=== PATIENT | male | born 1975 | race Caucasian/White ===

== ENCOUNTER 2024-06-27 15:40 | Outpatient (CLI) | payer OTHER, SELFPAY ==
--- NOTE | ~2024-06-27 | XR_ITS ---
EXAMINATION: XR chest 2V Exam Date/Time: 06/27/2024 15:42 CDT HISTORY: hx of smoking x 30 years Comparison: None. RESULT: Lines, tubes, and devices: None. Lungs and pleura: No focal consolidation, pleural effusion, or pneumothorax. Soft tissue opacificati on of the retrosternal clear space. Cardiomediastinal silhouette: Dilated central pulmonary arteries. Other: No acute osseous or upper abdominal finding. IMPRESSION: No acute cardiopulmonary process. Dilated central pulmonary arteries as can be seen with pulmonary hypertension. Opacification of the retrosternal clear space, consider CT of the chest with contrast for further linda luation. Reviewed, dictated and finalized at location [facility]. IMPRESSION: No acute cardiopulmonary process. Dilated central pulmonary arteries as can be seen with pulmonary hypertension. Opacification of the retrosternal clear space, consider CT of the chest with co ntrast for further evaluation.
== END 2024-06-27 15:41 | disposition home or self-care (01) ==
LOC: ANHBWCIMG 15:42
PROVIDERS: PCP Nurse Practitioner Adult Health; Visit Provider Nurse Practitioner Adult Health
DX: I28.8 Other diseases of pulmonary vessels (principal); I27.0 Primary pulmonary hypertension; F17.200 Nicotine dependence, unspecified, uncomplicated
CPT/HCPCS: 71046

== ENCOUNTER 2024-06-30 07:37 | Outpatient (CLI) | payer OTHER, SELFPAY ==
--- NOTE | ~2024-06-30 | CT_ITS ---
Clinical Indication: Disorder of lung CT Scan of the Chest with Contrast: Technique: Contiguous sections were acquired throughout the chest after intravenous administration of 75 cc of Omnipaque 350. Dose reduction technique was used on this scan by utilizing automated exposu re control and iterative reconstruction technique. The dose-length product (DLP) was 395.07 mGy-cm. Findings: There is no evidence of any significant mediastinal, hilar or axillary lymphadenopathy. No large cent ral pulmonary embolus evident. There is no evidence of aortic dissection or aneurysm. There is no evidence of pleural or pericardial effusion. The lungs are clear. No pulmonary nodules or infiltrates are noted. Images through the upper abdomen reveal no abnormalities. Impression: No significant abnormality seen. Reviewed, dictated and finalized at [facility]. Impression: No significant abnormality seen.
--- OUTSIDE RECORDS SUMMARY | 2024-06-30 07:40 | XMS_ITS | Clinical Summary ---
Author Organization [facility] Address [address] [place] [address] Care Team Providers Care Nuclear Control Room Operator Name Role Phone Issa Arnold MD Primary Care Provider [phone] Source Comments [facility],non-owned Affiliates and Associated Physician Practices is amultiple site organization consisting of ambulatory clinics and hospital sitesin [place], [place], [place] and [place]. This disclosure is being madepursuant to the Care Everywhere program and may not contain all information available regarding this patient. Last updated 17.Lorena Gaxiola [employer] Allergies No known active allergies Medications * Be aware that medications may not be up to date on this document. Alwaysverify current medications with the patient. famotidine (PEPCID) 40 MG tablet Take 40 mg by mouth once daily Active benzonatate (TESSALON) 200 MG capsule Take 1 capsule by mouth 3 times daily as needed for Cough 30 capsule 02/17/2018 Active Social History Tobacco Use Types Packs/Day Years Used Date Smoking Tobacco: Every Day Smokeless Tobacco: Never Tobacco Cessation:Ready to Q uit: No; Counseling Given: Yes Sex and Gender Information Value Date Recorded Sex Assigned at Not on file Legal Sex Male 6:28 AM CUSTOMS INSPECTOR Gender Identity Not on file Sexual Orientation Not on file Last Filed Vital Signs Vital Sign Reading Time Taken Comments Blood Pressure 118/72 02/17/2018 10:41 AM CUSTOMS INSPECTOR Pulse 91 02/17/2018 10:41 AM CUSTOMS INSPECTOR Temperature 37 C (98.6 F) 02/17/2018 10:41 AM CUSTOMS INSPECTOR Respiratory Rate 16 02/17/2018 10:41 AM CUSTOMS INSPECTOR Oxygen Saturation 98% 02/17/2018 10:41 AM CUSTOMS INSPECTOR Inhaled Oxygen Concentration - - Weight 102.1 kg (225 lb) 02/17/2018 10:41 AM CUSTOMS INSPECTOR Height 188 cm (6' 2 ) 02/17/2018 10:41 AM CUSTOMS INSPECTOR Body Mass Index 28.89 02/17/2018 10:41 AM CUSTOMS INSPECTOR Plan of Treatment Health Maintenance Due Date Last Done Comments COLOGUARD (AGES 45-75) - COL ON CA SCREENING 1973 COLON MONITORING 1973 COLONOSCOPY - COLON CA SCREENING 1973 CT COLONOGRAPHY - COLON CA SCREENING 1973 Colorectal Cancer Screening 1973 FIT - COLON CA SCREENING 1973 FLEX SIG - COLON CA SCREENING 1973 LIPID TESTING 1973 HIV SCREENING 1988 HEPATITIS C SCREENING 07/17/1991 DTAP/TDAP/TD VACCINES (1 - Tdap) 1992 HEPATITIS B VACCINE (1 of 3 - 19+ 3-dose series) 1992 PNEUMOCOCCAL VACCINE 50+ (1 of 2 - PCV) 1992 SCREENING FOR DIABETES 01/12/2018 ZOSTER VACCINE (1 of 2) 07/22/2023 COVID-19 VACCINE (1 - 2023-2 5 season) 2023 DEPRESSION SCREENING 03/01/2024 INFLUENZA VACCINE (Season Ended) 2024 HIB VACCINE Aged Out No longer eligi ble based on patient's age to complete this topic HPV VACCINE Aged Out No longer eligi ble based on patient's age to complete this topic MENINGOCOCCAL (Group B) VACC INE SHARED DECISION-MAKING Aged Out No longer eligibl e based on patient's age to complete this topic MENINGOCOCCAL GROUPS A/C/Y/W VACCINE Aged Out No longer eligible b ased on patient's age to complete this topic Care Teams Nuclear Control Room Operator Relationship Specialty Start Date End Date Issa Arnold MD [address] [place] [address] PCP - General Internal Medicine 01/12/18
--- OUTSIDE RECORDS SUMMARY | 2024-06-30 07:40 | XMS_ITS | Clinical Summary ---
Author Organization [facility] Address [address] [place] [address] Phone Care Team Providers Care Geodetic Surveyor Name Role Phone Unavailable Primary Care Provider Unavailabl e Allergies No known active allergies Medications Omeprazole (PRILOSEC PO) Take by mouth. A ctive Esomeprazole Magnesium (NEXIUM PO) Take 1 Tablet by mouth daily. Active methylPREDNISol one (MEDROL DOSPACK) 4 MG Tablet Therapy Pack Follow instructions on pack, take with food; Give one pack 1 Dose Pack Active Additional Information Patient not taking.Reported on 11/06/2020 meloxicam (MOBIC) 7.5 MG Tablet One tab BID PRN sternum pain 30 Tablet Active Additional Information Patient not taking.Reported on 11/06/2020 Active Problems No known active problems Social History Tobacco Use Types Packs/Day Years Used Date Smoking Tobacco: Every Day Cigarettes Smokeless Tobacco: Current Chew Tobacco Cessation:Ready to Q uit: No; Counseling Given: Yes PHQ-2 Answer Date Recorded Total Score - Questions 1-9 0 08/29 Sex and Gender Information Value Date Recorded Sex Assigned at Not on file Legal Sex Male 8:02 PM CDT Gender Identity Not on file Sexual Orientation Not on file Last Filed Vital Signs Vital Sign Reading Time Taken Comments Blood Pressure 138/76 11/06/2020 9:25 AM CDT Pulse 85 11/06/2020 9:25 AM CDT Temperature 36.6 C (97.9 F) 11/06/2020 9:25 AM CDT Respiratory Rate 20 11/06/2020 9:25 AM CDT Oxygen Saturation 98% 11/06/2020 9:25 AM CDT Inhaled Oxygen Concentration - - Weight 106.6 kg (235 lb) 11/06/2020 9:25 AM CDT Height 188 cm (6' 2 ) 09/16/2020 3:55 PM CDT Body Mass Index 30.17 09/16/2020 3:55 PM CDT Plan of Treatment Health Maintenance Due Date Last Done Comments Hepatitis C Virus (HCV) Screening 1973 TdaP Immunization 1973 Hepatitis B Immunization (1 of 3 - 19+ 3-dose series) 1992 Colonoscopy 2018 Colorectal Cancer Screening 2018 Cologuard 07/22/2023 Immunochemical Fecal Occult Blood 07/22/2023 Pneumococcal Immunization (5 0+ years) (1 of 1 - PCV) 07/22/2023 Zoster Immunization (1 of 2) 07/22/2023 Influenza Immunization (#1) 2023 SARS-COV-2 Immunization (3 - 2023- season) 2023 08/20/2020, 07/30/2020 Respiratory Syncytial Virus (RSV) Immunization (Adult) (1 - 1-dose 75+ series) 2048 Meningococcal Immunization (ACWY) Aged Out No longer eligible b ased on patient's age to complete this topic Rotavirus Immunization Aged Out No lo nger eligible based on patient's age to complete this topic Insurance [place] [address] [address]
--- NOTE | 2024-06-30 07:55 | ECHO_ITS ---
Patient Info Name: Yosef Kenney Age: 48 years : 1975 Gender: Male Ht: 74 in Wt: 230 lbs BSA: 2.35 m2 HR: 85 bpm BP: 149 / 110 mmHg Technical Quality: Fair Exam Date: 06/30/2024 8:15 AM Exam Location: Echo Lab Patient Status: Outpatient Admit Date: 06/30/2024 Staff Ordering Physician: Pat Duran APRN Cook Vacuum Kettle: Paty Jones RDCS Attending Provider: Pat Duran APRN Referring Physician: Roger KENNY; Exam Type: CA echo dop color flow w con Study Info Indications I28.8 - Other diseases of pulmonary vessels Complete two-dimensional, color flow and Doppler transthoracic echocardiogram is performed with contrast to opacify the left ventricle and to improve the deliniation of the left ventricle endocardial borders. Contrast/Agitated Saline Contrast/Ag. Saline: Definity Amount: 3.00 ml IV Access Condition: patent with no signs of infiltration New IV Access: Left Site Condition: IV removed Summary 1. Definity contrast administered improved wall motion interpretation. 2. Left ventricular chamber dimension is normal. 3. Left ventricular systolic function is normal, estimated at 55-60%. 4. The left ventricular diastolic function is normal. 5. E/e' 6 is not elevated. 6. There is trace mitral valve regurgitation. 7. There is trace tricuspid valve regurgitation. 8. No pulmonary hypertension, estimated pulmonary arterial systolic pressure is 18 mmHg. Left Ventricle E/e' 6 is not elevated. Definity contrast administered improved wall motion interpretation. Left ventricular chamber dimension is normal. Left ventricular systolic function is normal, estimated at 55-60%. The left ventricular diastolic function is normal. Right Ventricle Right ventricular systolic function is normal and with normal TAPSE 1.8 cm. Right ventricular chamber dimension is normal. Left Atria Left atrial chamber dimension is normal. Right Atria Right atrial chamber dimension is normal. Aortic Valve The aortic valve is trileaflet. There is no aortic valve stenosis. There is no aortic valve regurgitation. Pulmonic Valve There is no pulmonic regurgitation. Mitral Valve There is no mitral valve stenosis. There is trace mitral valve regurgitation. Tricuspid Valve There is trace tricuspid valve regurgitation. No pulmonary hypertension, estimated pulmonary arterial systolic pressure is 18 mmHg. Pericardium/Pleural There is no pericardial effusion. Inferior Vena Cava Normal inferior vena cava with >50% collapse upon inspiration consistent with normal right atrial pressure, 5 mmHg. Aorta The aortic root size at the sinus of Valsalva is normal. Left Ventricular Outflow Tract Name Value Normal LVOT 2D LVOT Diameter 2.04 cm LVOT Doppler LVOT Peak Gradient 4 mmHg LVOT Mean Gradient 3 mmHg LVOT VTI 22.13 cm LVOT VTI/AV VTI Ratio 0.85 LVOT Stroke Volume 72.15 ml LVOT CO 15.47 l/min LVOT CI 6.57 L/min/m2 Pulmonic Valve Name Value Normal PV Doppler PV Peak Gradient 10 mmHg Mitral Valve Name Value Normal MV Doppler MV Decel Harding 274.25 cm/s2 MV PHT 0 s MV Area (PHT) 3.04 cm2 4.00-5.00 MV Diastolic Function MV E Peak Velocity 68.44 cm/s MV A Peak Velocity 48.26 cm/s MV E/A 1.42 MV Decel Time 0 s MV Annular TDI MV E/e' (Septal) 6.57 <=8.00 MV E/e' (Lateral) 5.65 <=8.00 MV E/e' (Average) 6.11 Tricuspid Valve Name Value Normal TV Regurgitation Doppler TR Peak Velocity 181.14 cm/s TR Peak Gradient 13 mmHg Estimated PAP/RSVP RA Pressure 5 mmHg <=5 PA Systolic Pressure 18 mmHg <36 RV Systolic Pressure 18 mmHg <36 Aorta Name Value Normal Ascending Aorta Ao Root Diameter (MM) 3.17 cm Ao Root Diam Index (MM) 1.35 cm/m2 Aortic Valve Name Value Normal AV Doppler AV Peak Velocity 124.61 cm/s AV Peak Gradient 6 mmHg AV Mean Gradient 4 mmHg AV VTI 25.96 cm AV Area (Cont Eq VTI) 2.78 cm2 >=3.00 AV Area (Cont Eq Kuldip) 2.71 cm2 AV Regurgitation 2D LVOT Area 3.26 cm2 Ventricles Name Value Normal LV Dimensions 2D/MM IVS Diastolic Thickness (2D) 0.94 cm 0.60-1.00 LVID Diastole (2D) 5.22 cm 4.20-5.80 LVIW Diastolic Thickness (2D) 0.88 cm 0.60-1.00 LVID Systole (2D) 4.14 cm 2.50-4.00 LVOT Diameter 2.04 cm LV Mass (2D Cubed) 172.91 g 88.00-224.00 LV Mass Index (2D Cubed) 0.01 g/cm2 0.00-0.01 Relative Wall Thickness (2D) 0.34 LV Fractional Shortening/Ejection Fraction 2D/MM LV Fractional Shortening (2D) 21 % 25-43 LV EF (2D Teicholz) 42 % 52-72 LV Diastolic Volume (4C MOD) 140.10 ml LV EF (4C MOD) 65 % LV Diastolic Volume (2C MOD) 102.18 ml LV EF (2C MOD) 50 % LV Diastolic Volume (BP MOD) 131.73 ml 62.00-150.00 LV Diastolic Volume Index (BP MOD) 0.06 l/m2 0.03-0.07 LV Systolic Volume (BP MOD) 52.11 ml 21.00-61.00 LV Systolic Volume Index (BP MOD) 0.02 l/m2 0.01-0.03 LV EF (BP MOD) 60 % 52-72 LV Diastolic Length (4C) 9.11 cm LV Systolic Length (4C) 7.23 cm LV Stroke Volume (4C MOD) 91.18 ml Atria Name Value Normal LA Dimensions LA Dimension (MM) 3.37 cm 3.00-4.10 LA Volume (4C A-L) 44.98 ml LA Volume (BP A-L) 57.11 ml RA Dimensions RA Area (4C) 16.18 cm2 <=18.00 Report Signatures
[2024-06-30] MEDS: PERFLUTREN LIPID MICROSPHERES 1.5 ML VIAL DILUTED TO 10 ML TOTAL VOLUME IV PUSH (08:30)
--- NOTE | 2024-06-30 08:59 | IVDEFINITY ---
Prior to administration of IV Definity the patient was educated on the risks and benefits of the imaging enhancing agent including potential adverse side effects. The patient verbalized understanding. Allergies were verified. No exclusion criteria were identified and at least one of the following inclusion criteria were met: 1) physician request, 2) patient technically difficult to image (per the [place] [employer] Echocardi[employer] guidelines of two or more segments not discernable within the apical view), or 3) questionable left ventricular function. ?
== END 2024-06-30 07:38 | disposition home or self-care (01) ==
PROVIDERS: PCP Nurse Practitioner Adult Health; Visit Provider Nurse Practitioner Adult Health
DX: I28.8 Other diseases of pulmonary vessels (principal); R93.89 Abnormal findings on diagnostic imaging of other specified body structures; F17.200 Nicotine dependence, unspecified, uncomplicated
CPT/HCPCS: 71260; C8929; Q9957; Q9967